=== PATIENT | male | born 1980 | race Caucasian/White ===

== ENCOUNTER 2022-06-29 19:34 | Emergency (ER) | payer BC ==
[~2022-06-29] VITALS: Ht 177.8 cm; Wt 93.4 kg
[2022-06-29 19:38] VITALS: BP_SYST 154
--- NOTE | 2022-06-29 19:42 | NUR ---
per patient, has been having tingling in fingers for one hour and states he started taking blood pressure immediately and noticed it high and came in to see if he was "having heart attack" no pain or trouble breathing, lungs clear bilaterally, speaking in full sentences.
--- NOTE | 2022-06-29 19:45 | NUR ---
DR. IRAHETA IN TRIAGE ASSESSING PATIENT.
[2022-06-29 20:47] VITALS: BP_SYST 139
--- NOTE | 2022-06-29 20:50 | NUR ---
Patient given written and verbal discharge instructions and verbalizes understanding. ER MD discussed with patient the results and treatment provided. Patient in stable condition. ID arm band removed. IV catheter removed intact and dressing applied, no active bleeding. Rx of N/A given. Patient educated on pain management and to follow up with PMD. Pain Scale . Opportunity for questions provided and answered. Medication side effect fact sheet provided.
== END 2022-06-29 20:50 | disposition home or self-care (01) ==
LOC: SED 19:34
DX: F41.0 Panic disorder [episodic paroxysmal anxiety] (principal); F41.9 Anxiety disorder, unspecified; R20.2 Paresthesia of skin; R42 Dizziness and giddiness; Z79.899 Other long term (current) drug therapy
CPT/HCPCS: 93005; 99283